=== PATIENT | male | born 1985 | race Caucasian/White ===

== ENCOUNTER 2017-01-14 18:14 | Inpatient (IN) | payer OTHER ==
[~2017-01-14] VITALS: Ht 177.8 cm; Wt 69.9 kg
[2017-01-14 23:04] LABS: RED BLOOD COUNT 3.86 M/UL (4.20-5.50); WHITE BLOOD COUNT 11.4 K/UL (4.5-11.0)
[2017-01-14 23:39] LABS: BUN/CREATININE RATIO 14 (0-10)
[2017-01-15] MEDS ORDERED: SUBOXONE 8 MG-1 EACH SL (03:15)
[2017-01-15] MEDS ORDERED: TRAZODONE HCL100 MG PO (03:16)
[2017-01-15] MEDS ORDERED: VENLAFAXINE H37.5 M2 PO (03:17)
[2017-01-15] MEDS ORDERED: BACTROBAN CREAM15 GM EXT (03:19)
[2017-01-15 04:16] LABS: RED BLOOD COUNT 3.84 M/UL (4.20-5.50); WHITE BLOOD COUNT 11.4 K/UL (4.5-11.0)
[2017-01-15 04:49] LABS: BUN/CREATININE RATIO 13 (0-10)
--- NOTE | 2017-01-15 22:01 | NUR ---
2130- SECURITY AT PATIENTS BEDSIDE, PATIENT CURSING ABOUT NURSING STAFF, HS INFORMED.
[2017-01-17 05:40] LABS: BUN/CREATININE RATIO 14 (0-10)
[2017-01-18 06:05] LABS: HEMOGLOBIN 11.1 gm/dl (14.0-17.5); RED BLOOD COUNT 3.58 M/UL (4.20-5.50); WHITE BLOOD COUNT 6.6 K/UL (4.5-11.0)
[2017-01-18 06:24] LABS: BUN/CREATININE RATIO 11 (0-10)
[2017-01-20 03:42] LABS: RED BLOOD COUNT 3.53 M/UL (4.20-5.50); WHITE BLOOD COUNT 7.1 K/UL (4.5-11.0)
[2017-01-20 04:10] LABS: BUN/CREATININE RATIO 14 (0-10)
--- NOTE | 2017-01-20 13:11 | NUR ---
1312: RECEIVED REPORT FR WOODY R/T JORDAN PROCEDURE.
--- NOTE | 2017-01-20 18:36 | NUR ---
PATIENT LEFT THE FLOOR VIA WHEELCHAIR WITH MOTHER
[2017-01-21 05:09] LABS: BUN/CREATININE RATIO 18 (0-10)
[2017-01-21] MEDS ORDERED: ELIQUIS5 MG PO ×2 (20:58→20:59)
== END 2017-01-21 21:10 | disposition home or self-care (01) | DRG 176 ==
LOC: ER1 18:14 → PROG CARE 01-15 01:00 → ZEROF 01-15 01:00 → PROG CARE 01-15 03:03 → MED SURG 4 01-15 19:44
PROVIDERS: Emergency Medicine; Hospitalist; ADMIT Internal Medicine
PROC: B246ZZ4 Ultrasonography of Right and Left Heart, Transesophageal (ICD-10-PCS; principal; 2017-01-20)
DX: I26.99 Other pulmonary embolism without acute cor pulmonale (principal); J90 Pleural effusion, not elsewhere classified; R04.2 Hemoptysis; B18.2 Chronic viral hepatitis C; R50.9 Fever, unspecified; F12.10 Cannabis abuse, uncomplicated; G89.4 Chronic pain syndrome; M54.9 Dorsalgia, unspecified; F17.210 Nicotine dependence, cigarettes, uncomplicated; Z22.322 Carrier or suspected carrier of Methicillin resistant Staphylococcus aureus; Z86.718 Personal history of other venous thrombosis and embolism; Z79.899 Other long term (current) drug therapy; Z84.89 Family history of other specified conditions
CPT/HCPCS: ECHO; 36415; 71010; 71101; 72146; 72148; 80048; 80053; 80074; 80202; 80307; 81001; 81240; 81241; 82550; 82553; 83690; 83874; 84484; 85025; 85027; 85300; 85307; 85379; 85610; 85670; 85730; 86140; 87040; 87390; 93005; 93306; 93312; 93320; 93970; 96372; 96374; 96375; 96376; 99285; C1751; G0378; J1650; J1885; J2060; J2270; J3370; J7030; J7040; J7050; J7070; Q9963